=== PATIENT | female | born 1960 | race Two or more races ===

== ENCOUNTER 2021-01-04 14:53 | Outpatient (CLI) | payer OTHER | END 2021-01-04 15:51 | disposition home or self-care (01) | LOC: OFIC 805 14:53 | PROVIDERS: ATTEND Otolaryngology Otology & Neurotology | DX: J30.89 Other allergic rhinitis (principal); R09.81 Nasal congestion; G44.89 Other headache syndrome; J34.2 Deviated nasal septum ==

== ENCOUNTER 2021-02-19 09:54 | Emergency (ER) | payer OTHER ==
[~2021-02-19] VITALS: Ht 160 cm; Wt 99.8 kg
[2021-02-19] MEDS ORDERED: FORTAMET1000 MG PO (10:12)
[2021-02-19] MEDS ORDERED: IBERSARTAN PO (10:12)
[2021-02-19] MEDS ORDERED: LEXAPRO20 MG PO (10:13)
[2021-02-19] MEDS ORDERED: CYMBALTA60 MG PO (10:13)
[2021-02-19] MEDS ORDERED: [UNRECOGNIZED DRUG - REMARK] PO (10:14)
== END 2021-02-19 15:17 | disposition home or self-care (01) ==
LOC: ER 09:54
DX: B37.2 Candidiasis of skin and nail (principal); R59.0 Localized enlarged lymph nodes; R10.32 Left lower quadrant pain; L08.89 Other specified local infections of the skin and subcutaneous tissue; B95.2 Enterococcus as the cause of diseases classified elsewhere

== ENCOUNTER 2021-05-22 13:41 | Outpatient (CLI) | payer OTHER ==
[~2021-05-22 13:41] MED LIST: CYMBALTA60 MG PO; FORTAMET1000 MG PO; IBERSARTAN PO; LEXAPRO20 MG PO; [UNRECOGNIZED DRUG - REMARK] PO
== END 2021-05-22 13:49 | disposition home or self-care (01) ==
LOC: MRI 13:41
PROVIDERS: ATTEND Physical Medicine & Rehabilitation Pain Medicine
DX: M54.17 Radiculopathy, lumbosacral region (principal)
CPT/HCPCS: 72148

== ENCOUNTER → 2021-06-26 14:30 | Outpatient (CLI) | payer OTHER | END | disposition home or self-care (01) | LOC: PPH VACUNA 14:30 | PROVIDERS: ATTEND Emergency Medicine Pediatric Emergency Medicine | DX: Z23 Encounter for immunization (principal) ==

== ENCOUNTER 2021-07-26 08:00 | Outpatient (CLI) | payer OTHER | END 2021-07-26 08:30 | disposition home or self-care (01) | LOC: PPH VACUNA 08:00 | PROVIDERS: ATTEND Emergency Medicine Pediatric Emergency Medicine | DX: Z23 Encounter for immunization (principal) ==

== ENCOUNTER 2021-10-08 07:13 | Outpatient (CLI) | payer OTHER | END 2021-10-08 08:29 | disposition home or self-care (01) | LOC: NUCLEAR 07:13 | DX: M25.50 Pain in unspecified joint (principal) | CPT/HCPCS: 78315; A9503 ==

== ENCOUNTER → 2021-10-16 14:35 | Outpatient (CLI) | payer OTHER | END | disposition home or self-care (01) | LOC: LAB 13:32 | DX: U07.1 COVID-19 (principal) ==

== ENCOUNTER 2021-10-28 13:10 | Outpatient (CLI) | payer OTHER | END 2021-10-28 13:12 | disposition home or self-care (01) | LOC: NUCLEAR 13:10 | DX: G31.84 Mild cognitive impairment of uncertain or unknown etiology (principal); G30.1 Alzheimer's disease with late onset | CPT/HCPCS: 78803; A9557 ==

== ENCOUNTER 2021-12-26 09:52 | Outpatient (CLI) | payer OTHER | END 2021-12-26 09:57 | disposition home or self-care (01) | LOC: RAD 09:52 | PROVIDERS: ATTEND Orthopaedic Surgery | DX: M25.511 Pain in right shoulder (principal) ==

== ENCOUNTER 2022-01-01 06:57 | Outpatient (CLI) | payer OTHER | END 2022-01-01 07:02 | disposition home or self-care (01) | LOC: LAB 06:57 | PROVIDERS: ATTEND Orthopaedic Surgery | DX: E55.9 Vitamin D deficiency, unspecified (principal); M85.9 Disorder of bone density and structure, unspecified; M19.90 Unspecified osteoarthritis, unspecified site; M10.9 Gout, unspecified ==

== ENCOUNTER 2022-01-01 11:56 | Outpatient (CLI) | payer OTHER | END 2022-01-01 12:04 | disposition home or self-care (01) | LOC: RAD 11:56 | PROVIDERS: ATTEND Orthopaedic Surgery | DX: M75.41 Impingement syndrome of right shoulder (principal); M25.551 Pain in right hip; M25.552 Pain in left hip ==

== ENCOUNTER 2022-01-14 08:00 | Outpatient (CLI) | payer OTHER | END 2022-01-14 08:30 | disposition home or self-care (01) | LOC: PPH VACUNA 08:00 | PROVIDERS: ATTEND Emergency Medicine Pediatric Emergency Medicine | DX: Z23 Encounter for immunization (principal) ==

== ENCOUNTER → 2022-01-24 | Emergency (ER) | payer OTHER ==
[~2022-01-24] VITALS: Ht 160 cm; Wt 96.6 kg
[~2022-01-24] MED LIST changes: +CELEBREX200MG PO; +CRESTOR40 MG PO; +IRBESARTAN300 MG PO; +SKELAXIN800 MG PO
== END | disposition home or self-care (01) ==
LOC: ER 07:38
DX: S30.0XXA Contusion of lower back and pelvis, initial encounter (principal); S00.83XA Contusion of other part of head, initial encounter; W01.0XXA Fall on same level from slipping, tripping and stumbling without subsequent striking against object, initial encounter; Y92.512 Supermarket, store or market as the place of occurrence of the external cause; Z79.84 Long term (current) use of oral hypoglycemic drugs; E11.9 Type 2 diabetes mellitus without complications; M79.7 Fibromyalgia; I10 Essential (primary) hypertension; M54.59 Other low back pain

== ENCOUNTER → 2022-02-21 | Outpatient (CLI) | payer OTHER | END | disposition home or self-care (01) | LOC: LAB 10:21 | DX: U07.1 COVID-19 (principal) ==

== ENCOUNTER 2022-03-21 14:57 | Outpatient (CLI) | payer OTHER | END 2022-03-21 14:59 | disposition home or self-care (01) | LOC: LAB 14:57 | PROVIDERS: ATTEND Preventive Medicine Occupational Medicine | DX: U07.1 COVID-19 (principal) ==

== ENCOUNTER 2022-06-11 08:00 | Outpatient (CLI) | payer OTHER | END 2022-06-11 08:05 | disposition home or self-care (01) | LOC: PPH VACUNA 08:00 | PROVIDERS: ATTEND Emergency Medicine Pediatric Emergency Medicine | DX: Z23 Encounter for immunization (principal) | CPT/HCPCS: 90686; G0008 ==

== ENCOUNTER 2022-06-24 08:25 | Outpatient (CLI) | payer OTHER | END 2022-06-24 08:35 | disposition home or self-care (01) | LOC: PPH VACUNA 08:25 | PROVIDERS: ATTEND Emergency Medicine Pediatric Emergency Medicine | DX: Z23 Encounter for immunization (principal) ==

== ENCOUNTER 2022-07-31 13:10 | Outpatient (CLI) | payer OTHER | END 2022-07-31 13:15 | disposition home or self-care (01) | LOC: MAMO-SONO 13:10 | PROVIDERS: ATTEND Surgery | DX: Z12.31 Encounter for screening mammogram for malignant neoplasm of breast (principal) ==

== ENCOUNTER 2022-08-06 07:43 | Outpatient (CLI) | payer OTHER | END 2022-08-06 07:47 | disposition home or self-care (01) | LOC: LAB 07:43 | PROVIDERS: ATTEND Internal Medicine | DX: R94.31 Abnormal electrocardiogram [ECG] [EKG] (principal); I11.9 Hypertensive heart disease without heart failure; R07.9 Chest pain, unspecified; E78.2 Mixed hyperlipidemia; E11.9 Type 2 diabetes mellitus without complications; E03.9 Hypothyroidism, unspecified ==

== ENCOUNTER 2022-08-21 06:29 | Outpatient (CLI) | payer OTHER | END 2022-08-21 07:10 | disposition home or self-care (01) | LOC: MRI 06:29 | PROVIDERS: ATTEND Orthopaedic Surgery | DX: M23.92 Unspecified internal derangement of left knee (principal) | CPT/HCPCS: 73721 ==

== ENCOUNTER → 2022-10-20 13:48 | Outpatient (CLI) | payer OTHER | END | disposition home or self-care (01) | LOC: LAB 13:48 | PROVIDERS: ATTEND General Practice | DX: D64.9 Anemia, unspecified (principal) ==

== ENCOUNTER 2023-02-25 07:36 | Outpatient (CLI) | payer OTHER | END 2023-02-25 12:51 | disposition home or self-care (01) | LOC: LAB 07:36 | DX: D68.9 Coagulation defect, unspecified (principal); E11.9 Type 2 diabetes mellitus without complications; I10 Essential (primary) hypertension ==

== ENCOUNTER 2023-03-02 07:33 | Outpatient (CLI) | payer OTHER | END 2023-03-02 11:42 | disposition home or self-care (01) | LOC: LAB 07:33 | DX: E78.2 Mixed hyperlipidemia (principal); I70.0 Atherosclerosis of aorta; F13.20 Sedative, hypnotic or anxiolytic dependence, uncomplicated; I13.10 Hypertensive heart and chronic kidney disease without heart failure, with stage 1 through stage 4 chronic kidney disease, or unspecified chronic kidney disease; N18.2 Chronic kidney disease, stage 2 (mild); J44.9 Chronic obstructive pulmonary disease, unspecified; M79.7 Fibromyalgia; F33.0 Major depressive disorder, recurrent, mild; G43.009 Migraine without aura, not intractable, without status migrainosus; J45.30 Mild persistent asthma, uncomplicated; I34.0 Nonrheumatic mitral (valve) insufficiency; G47.33 Obstructive sleep apnea (adult) (pediatric); M43.06 Spondylolysis, lumbar region; E11.42 Type 2 diabetes mellitus with diabetic polyneuropathy; E11.69 Type 2 diabetes mellitus with other specified complication; N39.0 Urinary tract infection, site not specified ==

== ENCOUNTER 2023-04-29 07:30 | Outpatient (CLI) | payer OTHER | END 2023-04-29 07:32 | disposition home or self-care (01) | LOC: LAB 07:30 → EDBD 07:30 → LAB 07:32 | DX: D64.9 Anemia, unspecified (principal); I10 Essential (primary) hypertension; E03.9 Hypothyroidism, unspecified; E78.9 Disorder of lipoprotein metabolism, unspecified ==

== ENCOUNTER 2023-04-29 08:13 | Outpatient (CLI) | payer OTHER | END 2023-04-29 08:24 | disposition home or self-care (01) | LOC: SONOGRAMA 08:13 → EDBD 08:13 → SONOGRAMA 08:24 | PROVIDERS: ATTEND Internal Medicine | DX: K80.80 Other cholelithiasis without obstruction (principal); K80.50 Calculus of bile duct without cholangitis or cholecystitis without obstruction; M79.671 Pain in right foot ==

== ENCOUNTER 2023-06-19 07:43 | Outpatient (CLI) | payer OTHER | END 2023-06-19 07:53 | disposition home or self-care (01) | LOC: PPH VACUNA 07:43 | PROVIDERS: ATTEND Emergency Medicine Pediatric Emergency Medicine | DX: Z23 Encounter for immunization (principal) | CPT/HCPCS: 90686; G0008 ==

== ENCOUNTER → 2023-07-16 06:36 | Outpatient (CLI) | payer OTHER ==
[2023-07-16 08:09] LABS: CHOL HDL RATIO 2.6 (0-5.0); CREATININE SERUM 0.68 mg/dL (0.55-1.02); GFR 86.84; POTASSIUM 3.87 mEq/L (3.5-5.1); TSH 2.04 uIU/mL (0.358-3.74)
== END | disposition home or self-care (01) ==
LOC: LAB 06:36
DX: E11.65 Type 2 diabetes mellitus with hyperglycemia (principal); E11.8 Type 2 diabetes mellitus with unspecified complications; E78.5 Hyperlipidemia, unspecified; E11.40 Type 2 diabetes mellitus with diabetic neuropathy, unspecified; Z68.36 Body mass index [BMI] 36.0-36.9, adult; E66.8 Other obesity; Z79.84 Long term (current) use of oral hypoglycemic drugs

== ENCOUNTER 2023-07-24 08:00 | Outpatient (CLI) | payer OTHER ==
[2023-07-24 09:21] LABS: HEMATOCRIT 39.9 % (36.0-45.00); HEMOGLOBIN 13.1 g/dL (12.0-15.00); MEAN CELL VOLUME 86.9 fL (80.00-100.00); MEAN CORPUSCULAR HEMOGLOBIN 28.6 pg (27.00-32.0); MEAN CORPUSCULAR HGB CONC 32.9 g/dl (32.0-36.0); PLATELET COUNT 369 K/uL (150-450)
[2023-07-24 09:28] LABS: ERYTHROCYTE SEDIMENTATION RATE 48 mm/hr
== END 2023-07-24 23:00 | disposition home or self-care (01) ==
LOC: LAB 08:00
DX: M79.7 Fibromyalgia (principal); G89.29 Other chronic pain; D50.9 Iron deficiency anemia, unspecified

== ENCOUNTER → 2023-07-30 | Emergency (ER) | payer OTHER ==
[~2023-07-30] VITALS: Ht 160 cm; Wt 93.9 kg
== END | disposition home or self-care (01) ==
LOC: ER 08:43
DX: M25.562 Pain in left knee (principal); E11.9 Type 2 diabetes mellitus without complications; Z79.84 Long term (current) use of oral hypoglycemic drugs; I10 Essential (primary) hypertension; Z88.8 Allergy status to other drugs, medicaments and biological substances
CPT/HCPCS: 96372; 99284; J1885

== ENCOUNTER 2023-08-03 08:56 | Emergency (ER) | payer OTHER ==
[~2023-08-03] VITALS: Ht 160 cm; Wt 93.9 kg
== END 2023-08-03 10:41 | disposition home or self-care (01) ==
LOC: ER 08:56
DX: M25.562 Pain in left knee (principal)
CPT/HCPCS: 73560; 96372; 99283; J1885

== ENCOUNTER 2023-08-04 10:51 | Outpatient (CLI) | payer OTHER | END 2023-08-04 11:07 | disposition home or self-care (01) | LOC: MRI 10:51 | PROVIDERS: ATTEND Orthopaedic Surgery | DX: M25.562 Pain in left knee (principal); M23.92 Unspecified internal derangement of left knee; M79.672 Pain in left foot | CPT/HCPCS: 73620; 73723; Q9965; 73719 ==

== ENCOUNTER 2023-08-05 11:19 | Outpatient (CLI) | payer OTHER | END 2023-08-05 11:26 | disposition home or self-care (01) | LOC: MAMO-SONO 11:19 | PROVIDERS: ATTEND Obstetrics & Gynecology | DX: N60.11 Diffuse cystic mastopathy of right breast (principal); N60.12 Diffuse cystic mastopathy of left breast; Z12.31 Encounter for screening mammogram for malignant neoplasm of breast ==

== ENCOUNTER 2023-08-06 13:11 | Outpatient (CLI) | payer OTHER | END 2023-08-06 13:12 | disposition home or self-care (01) | LOC: NUCLEAR 13:11 | PROVIDERS: ATTEND Obstetrics & Gynecology | DX: M81.0 Age-related osteoporosis without current pathological fracture (principal) ==

== ENCOUNTER → 2023-08-27 06:49 | Outpatient (CLI) | payer OTHER | END | disposition home or self-care (01) | LOC: LAB 06:49 | DX: M10.9 Gout, unspecified (principal); Z88.1 Allergy status to other antibiotic agents ==

== ENCOUNTER 2023-12-24 08:02 | Outpatient (CLI) | payer OTHER ==
[2023-12-24 08:47] LABS: HEMOGLOBIN 12.3 g/dL (12.0-15.00); MEAN CELL VOLUME 88.8 fL (80.00-100.00); MEAN CORPUSCULAR HEMOGLOBIN 29.4 pg (27.00-32.0); MEAN CORPUSCULAR HGB CONC 33.2 g/dl (32.0-36.0); PLATELET COUNT 419 K/uL (150-450); RED BLOOD COUNT 4.17 M/uL (4.00-6.00); RED CELL DISTRIBUTION WIDTH 13.4 % (11.5-14.5)
[2023-12-24 09:28] LABS: ALBUMIN 3.4 gm/dL (3.4-5.0); BILIRUBIN TOTAL 0.23 mg/dL (0.3-1.2); CALCIUM 9.2 mg/dL (8.5-10.1); CHOL HDL RATIO 2.6 (0-5.0); CREATININE SERUM 0.69 mg/dL (0.55-1.02); GFR 85.38; GLOBULINA 3.4 G/DL (2.4-3.5); POTASSIUM 4.53 mEq/L (3.5-5.1); TOTAL PROTEIN 6.8 gm/dL (6.4-8.2); TSH 1.3 uIU/mL (0.358-3.74)
[2023-12-24 11:03] LABS: URINE APPEARANCE Clear; URINE BILIRRUBIN Negative (NEGATIVE); URINE BLOOD Negative; URINE COLOR Yellow; URINE GLUCOSE Negative (NEGATIVE); URINE LEUKOCYTE Trace; URINE NITRATE Negative; URINE PROTEIN Negative (NEGATIVE); URINE UROBILINOGEN 0.2 E.U./dl
[2023-12-24 11:04] LABS: URINE RBC 9.6 uL (0.0-20.8); URINE WBC 8.9 uL (0.0-23.2)
[2023-12-24 11:19] LABS: URINE BACTERIA 3.7 uL (0.0-1933); URINE EPITHELIAL CELLS 1.2 uL (0.0-38.8)
== END 2023-12-24 13:40 | disposition home or self-care (01) ==
LOC: LAB 08:02
DX: E11.42 Type 2 diabetes mellitus with diabetic polyneuropathy (principal); D64.9 Anemia, unspecified; I10 Essential (primary) hypertension; E78.2 Mixed hyperlipidemia; I50.9 Heart failure, unspecified; E03.9 Hypothyroidism, unspecified; E11.9 Type 2 diabetes mellitus without complications

== ENCOUNTER 2024-01-19 11:02 | Outpatient (CLI) | payer OTHER ==
[2024-01-19 11:29] LABS: PH,URINE 6.5 (5.0-8.0); URINE APPEARANCE Clear; URINE BILIRRUBIN Negative (NEGATIVE); URINE BLOOD Negative; URINE COLOR Yellow; URINE GLUCOSE Negative (NEGATIVE); URINE LEUKOCYTE Negative; URINE NITRATE Negative; URINE PROTEIN Negative (NEGATIVE); URINE UROBILINOGEN 0.2 E.U./dl
[2024-01-19 11:32] LABS: HEMOGLOBIN 13.1 g/dL (12.0-15.00); MEAN CORPUSCULAR HEMOGLOBIN 29.5 pg (27.00-32.0); MEAN CORPUSCULAR HGB CONC 33.5 g/dl (32.0-36.0); PLATELET COUNT 408 K/uL (150-450); RED BLOOD COUNT 4.43 M/uL (4.00-6.00); RED CELL DISTRIBUTION WIDTH 13.2 % (11.5-14.5)
[2024-01-19 11:33] LABS: URINE EPITHELIAL CELLS 3.2 uL (0.0-38.8); URINE RBC 3.8 uL (0.0-20.8); URINE WBC 8.9 uL (0.0-23.2)
[2024-01-19 12:09] LABS: URINE BACTERIA 2.5 uL (0.0-1933)
== END 2024-01-19 11:03 | disposition home or self-care (01) ==
LOC: LAB 11:02
PROVIDERS: ATTEND Surgery
DX: R30.0 Dysuria (principal)

== ENCOUNTER 2024-05-16 08:26 | Outpatient (CLI) | payer OTHER | END 2024-05-16 08:31 | disposition home or self-care (01) | LOC: RAD 08:26 | DX: M17.0 Bilateral primary osteoarthritis of knee (principal); M25.561 Pain in right knee; M25.552 Pain in left hip; M70.72 Other bursitis of hip, left hip; M53.3 Sacrococcygeal disorders, not elsewhere classified ==

== ENCOUNTER 2024-05-27 08:42 | Outpatient (CLI) | payer OTHER ==
[2024-05-27 09:13] LABS: HEMATOCRIT 35.3 % (36.0-45.00); HEMOGLOBIN 11.8 g/dL (12.0-15.00); MEAN CELL VOLUME 87.3 fL (80.00-100.00); MEAN CORPUSCULAR HEMOGLOBIN 29.1 pg (27.00-32.0); MEAN CORPUSCULAR HGB CONC 33.4 g/dl (32.0-36.0); PLATELET COUNT 374 K/uL (150-450); RED BLOOD COUNT 4.04 M/uL (4.00-6.00); RED CELL DISTRIBUTION WIDTH 14.7 % (11.5-14.5)
[2024-05-27 10:12] LABS: ALBUMIN 3.3 gm/dL (3.4-5.0); BILIRUBIN TOTAL 0.3 mg/dL (0.3-1.2); CALCIUM 8.9 mg/dL (8.5-10.1); CREATININE SERUM 0.72 mg/dL (0.55-1.02); GFR 81.04; GLOBULINA 3.3 G/DL (2.4-3.5); POTASSIUM 4.5 mEq/L (3.5-5.1); T4 FREE 0.86 NG/ML (0.76-1.46); TOTAL PROTEIN 6.6 gm/dL (6.4-8.2); TSH 1.38 uIU/mL (0.358-3.74)
== END 2024-05-27 08:43 | disposition home or self-care (01) ==
LOC: LAB 08:42
DX: D64.9 Anemia, unspecified (principal); N18.9 Chronic kidney disease, unspecified; R94.5 Abnormal results of liver function studies; E78.5 Hyperlipidemia, unspecified; E11.9 Type 2 diabetes mellitus without complications; R73.09 Other abnormal glucose; E03.9 Hypothyroidism, unspecified